=== PATIENT | female | born 1970 | race Caucasian/White ===

== ENCOUNTER → 2016-06-13 | Outpatient (CLI) | payer MEDICAID ==
[2016-06-13 11:36] LABS: Basophils # (A) 0.1 k/uL (0-0.2); Basophils % (A) 1 %; CH 27.5; Eosinophils # (A) 0.5 k/uL (0-0.7); Eosinophils % (A) 5 %; HCT 39.2 % (34.0-46.0); HDW 2.36; HGB 12.4 gm/dL (11.4-16.0); Hypochromasia Slight; Luc # (Auto) 0.33; Luc % (Auto) 4; Lymphocytes # (A) 2.3 k/uL (1.0-4.8); Lymphocytes % (A) 27 %; MCH 28.1 pg (25.0-35.0); MCHC 31.5 g/dL (31.0-37.0); MCV 89.2 fL (80.0-100.0); Mean Platelet Volume 6.1; Monocytes # (A) 0.6 k/uL (0-1.0); Monocytes % (A) 6 %; Neutrophils % (A) 57 %; RBC 4.39 m/uL (3.80-5.40); RDW 13.7 % (11.5-15.5); WBC 8.7 k/uL (3.8-10.6); WBC (Perox) 9.34
== END | disposition home or self-care (01) ==
LOC: LABPAT 11:10
PROVIDERS: ATTEND Obstetrics & Gynecology
DX: Z01.818 Encounter for other preprocedural examination (principal); N92.0 Excessive and frequent menstruation with regular cycle; N85.8 Other specified noninflammatory disorders of uterus
CPT/HCPCS: 36415; 85025

== ENCOUNTER 2016-06-27 05:45 | Day surgery (SDC) | payer MEDICAID ==
[2016-06-23 12:42] VITALS: BMI 46.5
--- NOTE | 2016-06-26 14:13 | HP ---
DATE OF ADMISSION: 06/27/16. This is a 46-year-old white female, 1, para one who presented with a complaint of heavy long clotty menses for the past several months. Menses are lasting for 5 days with 2 days off, then for 7 additional days of heavy bleeding with clots approximately 25 cent piece size. She is using [id number] medications for this with minimal results. The patient has been counseled thoroughly in the office and would like to proceed with NovaSure ablation at [facility]. Endometrial biopsy in the office did reveal tissue that appeared normal but was scant for diagnosis and therefore D&C has been added to her procedure. Past medical history is significant for abnormal Pap smear in the past, digestive repair in [address] Tabares. PAST SURGICAL HISTORY: Digestive repair in 1971, endometrial biopsy in April 2016 revealing fragmented proliferative-type endometrium with features suggestive of disordered proliferative endometrium, cannot exclude low-grade ANN changes. CURRENT MEDICATIONS: Erythromycin topical gel twice daily. Naprosyn as needed, vitamin D orally daily, vitamin daily. Allergies include penicillin to which she reports a rash and hives. Past medical history is significant for emphysema diagnosed age 54 in her father, breast cancer in the patient's mother, brothers and sisters alive and well. Reproductive history: Menarche began at the age of 10 with monthly interval very heavy long duration with clot passage and pain as noted above. She has no history of GC, chlamydia infections. She gave to a liveborn male 1990 vaginally with no issues. SOCIAL HISTORY: Patient is employed at [employer]. She is a former tobacco smoker, denies alcohol or drug use. On exam, this is a pleasant white female, she her blood pressure is 150/80. Weight is 296 pounds, the patient is 5 feet 4-1/2 inches, BMI 49.52. The HEENT examination reveals good dentition. No thyromegaly, no cervical lymphadenopathy. Breasts are bilaterally symmetric to inspection with no skin dimpling, nipple discharge, axillary adenopathy or discernible lesions or masses. ABDOMEN: Soft, obese, no organosplenomegaly, active bowel sounds. No CVA tenderness. Extremities reveal no edema. Pelvic exam reveals multiparous cervix, small, anteverted, anteflexed uterus, adnexa are negative bilaterally, rectal exam is negative for fit stool sampling. IMPRESSIONS: Dysmenorrhea, menorrhagia, patient requesting NovaSure ablation. PLAN: The patient is aware of the risks, benefits, and alternatives of this procedure. We have discussed the risk of bleeding, infection, perforation or damage to bowel, bladder, ureters, blood vessels or indeed any pelvic or abdominal organs. Questions have been answered. Again dilatation and curettage of the cavity will be performed prior to procedure for better tissue sampling prior to ablation.
[~2016-06-27 05:45] MED LIST: Pre Op ABX Message 1 EACH MISC MISCELLANE ONE
[2016-06-27] MEDS ORDERED: ONDANSETRON 4 MG/2 ML VIAL IVP ONE (05:55)
[2016-06-27] MEDS ORDERED: DEXAMETHASONE SOD PHOSPHATE 10 MG/ML 1 ML VIAL IV ONE (05:55)
[2016-06-27] MEDS ORDERED: LACTATED RINGERS 1,000 ML IV SCH (05:55)
[2016-06-27] MEDS ORDERED: HYDROmorphone 1 MG/ML 1 ML SYRINGE IVP PRN (05:55)
[2016-06-27] MEDS ORDERED: LIDOCAINE 1% 20 ML VIAL (10MG/ML) FOR IV START INTRADERMA ONE (06:15)
[2016-06-27] MEDS ORDERED: KETOROLAC 30 MG/ML 1 ML VIAL ONE (07:24)
[2016-06-27] MEDS ORDERED: LIDOCAINE 1% INJ 10MG/ML (20 ML MDV) ONE (07:24)
[2016-06-27] MEDS ORDERED: PROPOFOL 10 MG/ML 20 ML VIAL IV ONE (07:24)
[2016-06-27] MEDS ORDERED: MIDAZOLAM 2 MG/2 ML VIAL ONE (07:24)
[2016-06-27] MEDS ORDERED: fentaNYL (PF) 50 MCG/ML 2 ML AMP ONE (07:24)
[2016-06-27] MEDS ORDERED: SUCCINYLCHOLINE CHLORIDE VIAL 200 MG/10 ML VIAL IV ONE (07:24)
--- NOTE | 2016-06-27 07:49 | P.PCN ---
Date of Procedure: 06/27/16 Preoperative Diagnosis: Menorrhagia, dysmenorrhea Postoperative Diagnosis: Same Procedure(s) Performed: Hysteroscopy, D&C, NovaSure endometrial ablation Implants: Anesthesia: GETA Surgeon: Miriam Huang Dairy Inspector #1: Stated None Estimated Blood Loss (ml): 5 IV fluids (ml): 600 Urine output (ml): 150 Pathology: other (Endometrial curettings) Condition: stable Disposition: PACU Indications for Procedure: Operative Findings: Description of Procedure: Patient is brought to the operating suite where general anesthetic is administered without difficulty. She's placed in the dorsal lithotomy position. The cervix, vagina, perineum and periurethral areas are all prepped and draped in usual sterile fashion. Examination under anesthesia reveals a grade 2-3 uterine prolapse, grade 3 rectocele, small mobile uterus, adnexa negative bilaterally. Bladder is drained for approximately 150 mL of clear yellow urine. Weighted speculum was placed into the vagina. Anterior lip of the cervix is grasped with a double-tooth tenaculum. Uterus sounds to a depth of 10 cm. The cervix was gently and systematically dilated using Hanks dilators. Hysteroscope was introduced and fluid is infused. Cavity is distended and noted to contain a polyp at 12:00, along with other shaggy proliferative-type appearing tissue. Hysteroscope was removed. NovaSure wand is placed into the cavity and seated properly. Uterine length of 6.5 cm, width of 4.0 cm is calibrated. The machine is properly enabled. For 70 seconds with a power of 143 W the procedure is carried out. When it is completed, the wand is reduced and removed. Hysteroscope was once again placed and the cavity is noted to be uniformly and thoroughly blanched. All sponge needle and enhancement counts are correct at the end of this procedure. Patient is brought back to recovery room in stable condition with blood pressure 107/57, pulse 56. All sponge and instrument counts are correct. Toradol is given prior to leaving the operative suite. Patient will follow-up with me in the office in 2 weeks.
[2016-06-27 08:09] VITALS: TEMP 97.4
[2016-06-27 08:55] VITALS: RESP 18
[2016-06-27 10:03] VITALS: BP 143/83; PULSE 75
== END 2016-06-27 10:40 | disposition home or self-care (01) ==
LOC: OR 05:45
PROVIDERS: ATTEND Obstetrics & Gynecology
DX: N85.01 Benign endometrial hyperplasia (principal); Z87.891 Personal history of nicotine dependence; E66.9 Obesity, unspecified; Z68.42 Body mass index [BMI] 45.0-49.9, adult; Z88.0 Allergy status to penicillin
CPT/HCPCS: 81025; 88305; 58563; J2250; J0330; J1100; J2405; J2001; J3010; J1885; J2704

== ENCOUNTER → 2018-01-28 | Outpatient (CLI) | payer MEDICAID ==
--- NOTE | 2018-01-29 07:50 | MM ---
Reason for exam: screening (asymptomatic). Last mammogram was performed 1 year ago. History: Family history of breast cancer in mother at age 74. Took hormonal contraceptives for 2 years beginning at age 15. Physical Findings: A clinical breast exam by your physician is recommended on an annual basis and results should be correlated with mammographic findings. MG 3D Screening Mammo W/Cad Bilateral CC and MLO view(s) were taken. Prior study comparison: January 19, 2017, bilateral MG 3d screening mammo w/cad. December 23, 2015, bilateral MG 3d screening mammo w/cad. There are scattered fibroglandular densities. No significant changes when compared with prior studies. ASSESSMENT: Negative, BI-RAD 1 RECOMMENDATION: Routine screening mammogram of both breasts in 1 year.
== END | disposition home or self-care (01) ==
LOC: RADMAMWWP 07:59
PROVIDERS: ATTEND Obstetrics & Gynecology
DX: Z12.31 Encounter for screening mammogram for malignant neoplasm of breast (principal); Z80.3 Family history of malignant neoplasm of breast
CPT/HCPCS: 77063; 77067

== ENCOUNTER 2022-10-04 08:15 | Day surgery (SDC) | payer OTHER ==
[2022-09-29 16:05] VITALS: BMI 51.5
[~2022-10-04 08:15] MED LIST changes: +LACTATED RINGERS 1,000 ML IV SCH; -Pre Op ABX Message 1 EACH MISC MISCELLANE ONE
[2022-10-04 08:56] VITALS: TEMP 96.7
[2022-10-04 08:58] LABS: Glucose,Whole Blood 145 mg/dL (70-110)
[2022-10-04] MEDS ORDERED: PROPOFOL 10 MG/ML 20 ML VIAL IV ONE (09:30)
[2022-10-04] MEDS ORDERED: LIDOCAINE 2% INJ 20 MG/ML (2 ML VIAL) ONE (09:30)
--- NOTE | 2022-10-04 09:45 | P.PCN ---
Date of Procedure: 10/04/22 Procedure(s) Performed: BRIEF HISTORY: Patient is a 52-year-old pleasant white female scheduled for an elective colonoscopy as a part of screening for colon cancer. PROCEDURE PERFORMED: Colonoscopy with biopsy. PREOPERATIVE DIAGNOSIS: Screening for colon cancer. IV sedation per Anesthesia. PROCEDURE: After informed consent was obtained, the patient, was brought into the endoscopy unit. IV sedation was administered by Anesthesia under continuous monitoring. Digital rectal examination was normal. Initially the Olympus CF-160 flexible video colonoscope was then inserted in the rectum, gradually advanced into the cecum without any difficulty. Careful examination was performed as the scope was gradually being withdrawn. Ileocecal valve and the appendiceal orifice were visualized and appeared normal. Prep was excellent. Mucosa of the cecum, ascending colon, transverse colon, appeared normal. In the descending colon there was a 3-4 mm sessile polyp removed by cold biopsy. Rest of the descending colon, sigmoid colon, and rectum appeared normal. Retroflexion was performed in the rectum and no lesions were seen. The patient tolerated the procedure well. IMPRESSION: 3-4 mm descending colon polyp status post-cold biopsy Rest of the colon appeared normal RECOMMENDATIONS: Findings of this examination were discussed with the patient as well as a family. She was advised to follow with the biopsy results. If the biopsy results adenoma she can have a repeat colonoscopy in 5 years..
[2022-10-04 09:52] VITALS: PULSE 85; RESP 16
[2022-10-04 10:12] VITALS: BP 97/59
== END 2022-10-04 10:38 | disposition home or self-care (01) ==
LOC: ORWHC2ENDO 08:15
PROVIDERS: ATTEND Internal Medicine Gastroenterology
DX: Z12.11 Encounter for screening for malignant neoplasm of colon (principal); D12.4 Benign neoplasm of descending colon; I10 Essential (primary) hypertension; E78.5 Hyperlipidemia, unspecified; E11.9 Type 2 diabetes mellitus without complications; Z79.84 Long term (current) use of oral hypoglycemic drugs; Z79.811 Long term (current) use of aromatase inhibitors; Z79.899 Other long term (current) drug therapy
CPT/HCPCS: 81025; 88305; 45380; J2704; J2001